=== PATIENT | male | born 1985 | race Caucasian/White ===

== ENCOUNTER 2017-02-16 08:56 | Emergency (ER) | payer SELFPAY ==
[2017-02-16] MEDS ORDERED: Adacel (T-DAP) 0.5 ML VIAL ONE (09:07)
[2017-02-16] MEDS ORDERED: Cephalexin 250 MG CAP ONE (09:24)
[2017-02-16] MEDS ORDERED: Triple Antibiotic Oint 1 GM Packet ONE (09:36)
--- NOTE | 2017-02-16 20:09 | RAD ---
LEFT THIRD FINGER 02/16/17 No fracture was seen. All joints appears normal. IMPRESSION: No acute findings. POS: HOME
== END 2017-02-16 09:57 | disposition home or self-care (01) ==
LOC: BURERS 08:56
DX: S61.313A Laceration without foreign body of left middle finger with damage to nail, initial encounter (principal); S61.211A Laceration without foreign body of left index finger without damage to nail, initial encounter; S61.215A Laceration without foreign body of left ring finger without damage to nail, initial encounter; F17.200 Nicotine dependence, unspecified, uncomplicated; W26.8XXA Contact with other sharp object(s), not elsewhere classified, initial encounter
CPT/HCPCS: 90471; 90715